=== PATIENT | female | born 1980 | race Caucasian/White ===

== ENCOUNTER 2019-09-12 15:28 | Emergency (ER) | payer SELFPAY ==
[~2019-09-12] VITALS: Ht 167.6 cm; Wt 61.2 kg
== END 2019-09-12 15:48 | disposition home or self-care (01) ==
LOC: ER 15:28
DX: L02.415 Cutaneous abscess of right lower limb (principal); Z87.442 Personal history of urinary calculi
CPT/HCPCS: 99281